=== PATIENT | male | born 1945 | race Caucasian/White ===

== ENCOUNTER 2022-05-24 16:04 | Emergency (ER) | payer OTHER ==
[2022-05-24] MEDS ORDERED: Ketorolac Tromethamine 30 MG/ML VIAL ONE (17:09)
== END 2022-05-24 17:11 | disposition home or self-care (01) ==
LOC: CSHERS 16:04
DX: M54.2 Cervicalgia (principal); M54.6 Pain in thoracic spine; M10.9 Gout, unspecified
CPT/HCPCS: 96372; 99283; J1885